=== PATIENT | female | born 1965 | race Caucasian/White ===

== ENCOUNTER 2021-02-01 08:14 | Outpatient (CLI) | payer OTHER, SELFPAY | END 2021-02-01 08:15 | disposition home or self-care (01) | LOC: ANHCOVIDVC 08:14 | PROVIDERS: PCP Hospitalist | DX: Z23 Encounter for immunization (principal) | CPT/HCPCS: 0001A; 91300 ==

== ENCOUNTER 2021-02-22 08:12 | Outpatient (CLI) | payer OTHER, SELFPAY | END 2021-02-22 08:13 | LOC: ANHCOVIDVC 08:12 | PROVIDERS: PCP Hospitalist | DX: Z23 Encounter for immunization (principal) | CPT/HCPCS: 0002A; 91300 ==